=== PATIENT | female | born 1985 | race Caucasian/White ===

== ENCOUNTER 2023-02-24 07:08 | Day surgery (SDC) | payer OTHER ==
[~2023-02-24] VITALS: Ht 162.6 cm; Wt 54.0 kg
[~2023-02-24 07:08] MED LIST: ASHWAGANDHA300 MG PO; CARAFATE1 GM PO; OMEPRAZOLE20 MG PO; PROPRANOLOL HCL20 MG PO
[2023-02-24 07:30] VITALS: BP 114/66
[2023-02-24 10:22] VITALS: BP 100/67
--- NOTE | 2023-02-24 10:36 | NUR ---
[facility]/23 [facility]36 [facility] ARRIV[facility] IN PACU SLEEPY. ABD SOFT. 100 RESTING. REU. 1010 SITTING UP IN BED SIPPING ON WATER. 1020 UP TO BATHROOM WITH ONE PERSON ASSIST. VOIDED. BACK IN ROOM GETTING DRESSED. 1031 DC INSTRUCTIONS GIVEN. ALL QUESTIONS ANSWERED. LEFT VIA W/C.
--- NOTE | 2023-02-24 13:50 | OR ---
[facility] [address] [place], [place] [address] Signed DATE OF OPERATION: 02/24/2023 SURGEON: Hussein Lorenzo MD PREOPERATIVE DIAGNOSES: 1. Change in bowel habits with loose yellow stools. 2. Epigastric and right upper quadrant abdominal pain associated with heartburn. POSTOPERATIVE DIAGNOSES: 1. Mild diffuse punctate hemorrhagic gastritis. 2. Unremarkable colonoscopy. PROCEDURES: 1. EGD with CLOtest with biopsies of the duodenum and antrum. 2. Colonoscopy with random cold biopsies. ESTIMATED BLOOD LOSS: None. 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 She told me she lost about 60 pounds after her 2nd child was born. Her dad and [id number] both within a year. She is raising three children. 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 She has been under a tremendous amount of stress. About 12 months ago, she has noticed a change in bowel habits with loose yellow stool. Normally, she was having about one bowel movement a day. She also mentions heartburn and epigastric abdominal pain. She tried Prilosec, but did not feel it was making a large difference. She said sucralfate was wonderful. Her stool studies have been negative. Ultrasound of the right upper quadrant was negative. She delayed the HIDA scan at this point. Apparently, she is using marijuana about 5/7 days. Apparently, she vapes the marijuana. She wanted to pursue upper and lower endoscopy with biopsies. She has been online reading and made herself very familiar with irritable bowel syndrome. She understands that if the gallbladder gets removed, she could certainly have worsening of her diarrhea and her symptoms. She thinks the symptoms are somewhat intermittent. They can be 1 or even 2 hours after she eats. In the office, I had given her pamphlets on both upper and lower endoscopy. We had reviewed those two tests together. She understands there is risk including, but not limited to gas bloating, crampy abdominal pain, bleeding, perforation requiring surgery, and missed diagnosis. We also reviewed the need for IV conscious sedation. She thought Versed and fentanyl would suffice. She had expressed Electronically Signed By: HUSSEIN LORENZO MD 02/24/23 1350 PATIENT NAME: BIJAN FLORES OPERATIVE REPORT DATE OF : 89 REPORT #: [id number] PHYSICIAN: HUSSEIN LORENZO MD PCP: SJ GALARZA PA-C REPORT IS CONFIDENTIAL AND NOT TO BE RELEASED WITHOUT AUTHORIZATION [facility] [address] [place], [place] [address] Signed understanding and wished to proceed. PROCEDURE NOTE: Bijan was taken into our endoscopy suite and placed in the supine semi-recumbent position. The posterior oropharynx was anesthetized with Hurricaine spray. A bite block was utilized for the case. She was given 7 mg of Versed and 100 mcg of fentanyl. She was still wide awake and talking to us and quite interactive. We therefore asked our anesthesia provider to come and help us with infusion of propofol. That worked out quite nicely. After that, we passed the scope down in the stomach out into the duodenum. The duodenum and pyloric channel were quite healthy. We went ahead and took a biopsy of the duodenum for the history of diarrhea. The stomach showed just mild diffuse hemorrhagic punctate gastritis. We took a biopsy of the antrum for CLOtest as well as pathologic review. Upon retroflexion of scope, there was no evidence of a hiatal hernia. There were no ulcerations. The scope was withdrawn up through the area of the GE junction, which was compliant without stricture. Her Z-line remains intact. The Z-line about 35 cm from the incisors. There was no Epperson's mucosa. No distal esophagitis. The middle and upper esophagus were unremarkable. After this, the gas was suctioned out and the gastroscope removed. Bijan tolerated the procedure quite well. Bijan was then rotated into the left lateral decubitus position. She was maintained on IV propofol per our nurse workers compensation attorney. A digital rectal exam was performed and she has very small circumferential external hemorrhoids. She had good sphincter tone. Her anal canal was not particularly long given her small body habitus. There were no masses. The adult colonoscope was introduced and advanced under direct visualization of the camera. It took a little extra propofol and some mild abdominal compression in order to advance the scope up into the cecum itself. Her prep was quite excellent. We could easily see the appendiceal orifice and the ileocecal valve. We tried several times to turn our scope up into the terminal ileum without success. The scope had therefore been slowly withdrawn. We took several random biopsies throughout the colon for pathologic review. Her entire colon and rectum appeared quite unremarkable. Upon retroflexion of the scope, we did not see any obvious pathology above the anal canal. After this, the gas was suctioned out and the colonoscope removed. Bijan tolerated the procedure quite well. RECOMMENDATIONS: I will see Bijan back in the office in 7 to 14 days to review her results. She may very well be correcting her self diagnosis of irritable bowel syndrome. Hussein Lorenzo MD Electronically Signed By: HUSSEIN LORENZO MD 02/24/23 4805 PATIENT NAME: BIJAN FLORES OPERATIVE REPORT DATE OF : 89 REPORT #: [id number] PHYSICIAN: HUSSEIN LORENZO MD PCP: SJ GALARZA PA-C REPORT IS CONFIDENTIAL AND NOT TO BE RELEASED WITHOUT AUTHORIZATION [address] [place], [place] [address] Signed ALB/MODL /[id number] cc: MD Dr. Sj Pettit Copies: HUSSEIN LORENZO MD ~ Electronically Signed By: HUSSEIN LORENZO MD 02/24/23 1350 PATIENT NAME: BIJAN FLORES OPERATIVE REPORT DATE OF : [birth year] REPORT #: [id number] PHYSICIAN: HUSSEIN LORENZO MD PCP: SJ GALARZA PA-C REPORT IS CONFIDENTIAL AND NOT TO BE RELEASED WITHOUT AUTHORIZATION
--- NOTE | 2023-02-25 16:26 | PATH ---
[facility] [address] [place], [place] [address] Signed SPECIMEN(S): A DUODENAL BIOPSY SPECIMEN(S): B ANTRUM BIOPSY SPECIMEN(S): C RANDOM COLON BIOPSY SPECIMEN SOURCE: A. DUODENAL BIOPSY B. ANTRUM BIOPSY C. RANDOM COLON BIOPSY CLINICAL HISTORY: Reflux, change in bowel habits. Dx: Mild hemorrhagic gastritis, unremarkable colonoscopy. FINAL PATHOLOGIC DIAGNOSIS: A. Duodenal biopsy: - Benign duodenal mucosa, negative for specific diagnostic abnormality. B. Antrum biopsy: - Benign gastric-type mucosa with focal mild chronic gastritis. - A Helicobacter pylori immunostain is negative for organisms. C. Random colon biopsy: - Benign colonic mucosa with an incidental mucosal lymphoid aggregate with reactive histologic features. - Negative for pathologic inflammation or epithelial atypia. JVR:[facility]:C2NR MICROSCOPIC EXAMINATION: Histologic sections of all submitted blocks are examined by light microscopy. These findings, together with the gross examination, support the pathologic diagnosis. A Helicobacter pylori immunostain is performed with appropriate positive and negative controls on block (B1) and is negative for organisms. J[facility] GROSS DESCRIPTION: A. The specimen, labeled and designated "Sha, duodenal biopsy," is received in formalin and consists of one luna soft tissue fragment, 0.3 cm. Entirely submitted in (A1). B. The specimen, labeled and designated "Sha, antrum biopsy," is received in formalin and consists of one luna soft tissue fragment, 0.4 cm. Entirely submitted in (B1). C. The specimen, labeled and designated "Sha, random colon biopsy," is PATIENT NAME: BIJAN FLORES PATHOLOGY DATE OF : 89 REPORT #: [id number] PHYSICIAN: SAHIL GOLD PCP: SJ GALARZA PA-C REPORT IS CONFIDENTIAL AND NOT TO BE RELEASED WITHOUT AUTHORIZATION [facility] [address] [place], [place] [address] Signed received in formalin and consists of three luna soft tissue fragments, ranging from 0.2-0.3 cm. Entirely submitted in (C1). VB (under the direct supervision of a pathologist) The Gross Description was prepared using a voice recognition system. The report was reviewed for accuracy; however, sound-alike word errors, addition and/or deletions may occur. If there is any question about this report, please contact Client Services. ADDITIONAL NOTES: Immunohistochemical and/or in situ hybridization studies were performed on this case with the appropriate positive controls that react as expected. This test was developed and its performance characteristics determined by [facility]. It has not been cleared or approved by the U.S. Food and Drug Administration. The FDA has determined that such clearance or approval is not necessary. This test is used for clinical purposes. It should not be regarded as investigational or for research. [facility] is certified under the Clinical Laboratory Improvement Amendments of 1988 (CLIA) as qualified to perform high complexity clinical laboratory testing. This assay has not been validated for specimens that have been decalcified. PERFORMING LABORATORY: The technical component was performed by [facility], [address] [place] [id number] (CLIA# [id number]). Professional interpretation was performed by [facility], [address] [place] [id number] (CLIA#: [id number]). Diagnostician: Aj Ramos MD Pathologist Electronically Signed 02/25/2023 Copies: ~ PATIENT NAME: BIJAN FLORES PATHOLOGY DATE OF : 89 REPORT #: [id number] PHYSICIAN: SAHIL PATHOLOGY PCP: SJ GALARZA PA-C REPORT IS CONFIDENTIAL AND NOT TO BE RELEASED WITHOUT AUTHORIZATION
== END 2023-02-24 10:31 | disposition home or self-care (01) ==
LOC: OPS 07:08 → DS 07:08 → OPS 08:15
PROVIDERS: ATTEND Colon & Rectal Surgery
PROC: 0DBE8ZX Excision of Large Intestine, Via Natural or Artificial Opening Endoscopic, Diagnostic (ICD-10-PCS; 2023-02-24)
PROC: 0DB98ZX Excision of Duodenum, Via Natural or Artificial Opening Endoscopic, Diagnostic (ICD-10-PCS; principal; 2023-02-24 08:15)
PROC: 0DB68ZX Excision of Stomach, Via Natural or Artificial Opening Endoscopic, Diagnostic (ICD-10-PCS; 2023-02-24 08:15)
DX: K29.51 Unspecified chronic gastritis with bleeding (principal); R19.4 Change in bowel habit; R12 Heartburn; R19.7 Diarrhea, unspecified; R25.1 Tremor, unspecified; F41.9 Anxiety disorder, unspecified
CPT/HCPCS: 00731; 36415; 84703; 87077; J2001; J2250; J2704; J3010; J7121